=== PATIENT | female | born 1965 | race Caucasian/White ===

== ENCOUNTER 2018-11-05 21:25 | Observation (INO) ==
[2018-11-05] MEDS ORDERED: ASPIRIN PO ONE (21:33)
[2018-11-05 22:17] LABS: BASO# 0.04 X1000 (0.0-0.2); BASO% 0.4 % (0.0-0.8); EOS# 0.17 X1000 (0.0-0.7); EOS% 1.6 % (0.0-10.0); HEMATOCRIT 38.1 % (37.0-47.0); HEMOGLOBIN 13.1 g/dL (12.0-16.0); IMM GRAN# 0.02 X1000 (0.0-0.04); IMM GRAN% 0.2 % (0.0-0.5); LYMPH# 3.09 X1000 (1.2-3.4); LYMPH% 28.6 % (20.5-51.1); MCH 29.4 PG (27-31); MCHC 34.4 g/dL (33-37); MCV 85.4 FL (81-99); MONO# 0.65 X1000 (0.11-0.59); MPV 10.1 FL (7.4-10.4); NEUT# 6.83 X1000 (1.4-6.5); NEUT% 63.2 % (42.2-75.2); PLT 284 X1000 (130-400); RBC 4.46 XMIL (4.2-5.4); RDW 12.8 % (11.5-14.5)
[2018-11-05 22:33] LABS: INR 0.81; PROTIME 11.6 Seconds (11.0-16.0); PTT 26.4 Seconds (22.3-41.8)
[2018-11-05 22:36] LABS: D-DIMER 0.54 ug/mLFEU (0.0-0.52)
[2018-11-05 22:43] LABS: AGAP 14; ALBUMIN 3.9 g/dL (3.5-5.0); ALKALINE PHOSPHATASE 107 U/L (32-104); BUN 13 mg/dL (8-22); CALCIUM 9.3 mg/dL (8.8-10.2); CHLORIDE 97 mmol/L (98-107); CK PROFILE 91 U/L (24-173); COSMO 274; CREATININE 0.7 mg/dL (0.5-0.9); ESTIMATED GFR > 60; GLUCOSE 103 mg/dL (70-104); GOT 22 U/L (10-30); GPT 27 U/L (10-36); POTASSIUM 3.7 mmol/L (3.5-5.1); SODIUM 137 mmol/L (136-145); TCO2 25 mmol/L (25-35); TOTAL PROTEIN 6.7 g/dL (6.3-8.3)
--- NOTE | 2018-11-05 23:42 | EKG Report ---
Test Performed on : 11/05/2018 9:54:06 PM Test Reason : palpitations Blood Pressure : / mmHG Vent. Rate : 092 BPM Atrial Rate : 092 BPM P-R Int : 148 ms QRS Dur : 084 ms QT Int : 366 ms P-R-T Axes : 040 027 061 degrees QTc Int : 452 ms Sinus rhythm. with premature atrial complexes. Low voltage QRS Borderline ECG When compared with ECG of 21-APR-2017 03:37, premature atrial complexes. are now present Unconfirmed Result
--- NOTE | 2018-11-06 03:36 | PROVIDER DOCUMENTATION ---
This chart was entered by Alexandra Spangler Scribe, acting as scribe for Daniela Medina MD. HPI-Cardiac General - General Chief Complaint: Palpitations Stated Complaint: PALPITATIONS Time Seen by Provider: 11/05/18 21:45 Source: patient Allergies/Adverse Reactions: Patient Allergies Allergy/AdvReac Type Severity Reaction Status Date / Time nut - unspecified [nut] Allergy Severe SHORTNESS Verified 11/05/18 21:33 OF BREATH erythromycin base Allergy SHORTNESS Verified 11/05/18 21:33 OF BREATH Penicillins Allergy NAUSEA/VOMI Verified 11/05/18 21:33 TING propoxyphene HCl * Allergy SHORTNESS Verified 11/05/18 21:33 [From Sophy] OF BREATH Home Medications: Home Medication List Medication Instructions Recorded Confirmed Last Taken Type Epinephrine [Epipen 2-Umer] 0.3 mg IM ONCE PRN PRN #0 08/28/14 04/21/17 Unknown Rx pen.[email or web address] Fluticasone/Salmet 250/50 INH 1 puff INH BID 04/21/17 04/21/17 Unknown History [Advair 250/50 Diskus] Insulin Aspart [Novolog] 20 units SQ TID 04/21/17 04/21/17 Unknown History Insulin Degludec [Tresiba 80 units SQ DAILY 04/21/17 04/21/17 Unknown History Flextouch U-200] Losartan Potassium 1 tab PO DAILY 04/21/17 04/21/17 Unknown History Metformin HCl [Metformin HCl ER] 3 tab PO DAILY 04/21/17 04/21/17 Unknown History Montelukast Sodium 1 tab PO DAILY 04/21/17 04/21/17 Unknown History Ondansetron Odt [Zofran 4 mg Odt] 4 mg PO Q6H PRN PRN #10 tab 04/21/17 Unknown Rx Pantoprazole Sodium 1 tab PO DAILY 04/21/17 04/21/17 Unknown History - History of Present Illness-Cardiac Nature of Presenting Problem: pt is a 53 yr old female presenting with complaint of palpitations, chest pressure, shortness of breath onset this evening, pt does reports similar last night but resolved quickly without intervention, pt denies any cardiac hx. Location: reports: central Quality of Pain: reports: pressure Severity in ED: moderate Onset/Duration: this evening Timing: still present Context/Activities at Onset: reports: light activity Modifying Factors: improves with: nothing Palpitation Quality: missing beats History of arrythmia: reports: none Recent use of:: reports: no stimulants Nitro Today/Relief: reports: no nitro taken today Aspirin Treatment Today: reports: 325 mg x 1, provided by ED Prior Chest Pain/Cardiac Workup: reports: no prior chest pain Associated Symptoms: reports: nausea, shortness of breath. denies: diaphoresis, fever/chills Similar Symptoms Previously?: No Recently Seen Here or By Another Healthcare Provider: No Review of Systems - Adult - REVIEW OF SYSTEMS - ADULT Constitutional: denies: fever, fatique Eyes: denies: blurred vision, double vision Ears, Nose, Mouth & Throat: reports: no symptoms reported Cardiovascular: reports: chest pain, irregular heart rate, palpitations. denies: syncope Respiratory: reports: shortness of breath Gastrointestinal: reports: nausea. denies: vomiting Genitourinary: reports: no symptoms reported Musculoskeletal: reports: no symptoms reported Integumentary: reports: no symptoms reported Neurological: denies: dizziness/vertigo, headache/migraines Psychiatric: reports: no symptoms reported Endocrine: reports: no symptoms reported Hematologic/Lymphatic: reports: no symptoms reported Allergic/Immunologic: reports: no symptoms reported All Other Systems: Reviewed and Negative Past History - Adult - PAST MEDICAL HISTORY-ADULT Review of Records: reports: Old Records Reviewed, Nursing Assessment Review, Medications Reviewed, Social history reviewed & non-contributory. Major Childhood Illnesses: reports: denies history Cardiovascular: reports: denies history Respiratory: reports: asthma Gastrointestinal: reports: denies history Obstetrical/Gynecological: reports: denies history Genitourinary: reports: denies history Musculoskeletal: reports: denies history Neurological: reports: denies history Psychiatric: reports: denies history Endocrine/Immune: reports: Diabetes Other Conditions: reports: denies history - PRIOR SURGERIES/PROCEDURES Surgical/Procedure History: reports: none - IMMUNIZATION STATUS Childhood Immunizations: See Nurse Assessment Flu Vaccine: See Nurse Assessment - FAMILY HISTORY Family History: reviewed, not pertinent - SOCIAL HISTORY Smoking: non-smoker Substance Use: none/never Living Situation: family Physical Exam-General - PHYSICAL EXAM-ADULT Initial Vital Signs Reviewed: Yes - CONSTITUTIONAL General Appearance: alert, no apparent distress, obese, anxious - EYES Eyes: PERRL/EOMI - HEAD, EARS, NOSE, MOUTH & THROAT HENMT: normocephalic/atraumatic, moist mucous membranes, normal ENT inspection - NECK Neck: non-tender, full range of motion, supple, normal inspection - RESPIRATORY Respiratory: chest non-tender, lungs clear, normal breath sounds - CARDIOVASCULAR Cardiovascular: normal peripheral pulses, regular rate, rhythm, no edema - GASTROINTESTINAL (ABDOMEN) Abdominal Exam: normal bowel sounds, non tender, soft - LYMPHATIC Lymphatic: no adenopathy - MUSCULOSKELETAL Back Exam: normal inspection, no CVA tenderness, no vertebral tenderness Extremity: normal range of motion, non-tender, normal gait, normal inspection - SKIN Integumentary: normal color, normal turgor, warm/dry - NEUROLOGIC Neurologic: grossly normal, no motor/sensory deficits - PSYCHIATRIC Psych/Mental Status: anxious Progress - PLAN OF CARE/RESULTS Progress/Plan/Lab Results: Vital Signs - 8 hr 11/05/18 21:31 Temperature 99.0 F Pulse Rate 108 H Respiratory Rate 22 Blood Pressure 143/68 O2 Sat by Pulse Oximetry 99 Laboratory Results - last 24 hr 11/05/18 11/05/18 11/05/18 22:05 22:05 22:05 WBC 10.80 RBC 4.46 Hgb 13.1 Hct 38.1 MCV 85.4 MCH 29.4 MCHC 34.4 RDW Std Deviation 12.8 Plt Count 284 MPV 10.1 Immature Gran % (Auto) 0.2 Neut % (Auto) 63.2 Lymph % (Auto) 28.6 Wilcox % (Auto) 6.0 Eos % (Auto) 1.6 Baso % (Auto) 0.4 Immature Gran # (Auto) 0.02 Neut # (Auto) 6.83 H Lymph # (Auto) 3.09 Wilcox # (Auto) 0.65 H Eos # (Auto) 0.17 Baso # (Auto) 0.04 PT INR PTT (Actin FS) D-Dimer, Quantitative Sodium 137 Potassium 3.7 Chloride 97 L Carbon Dioxide 25 Anion Gap 14 BUN 13 Creatinine 0.7 Estimated GFR/1.73 m2 > 60 BUN/Creatinine Ratio 19 Glucose 103 Calculated Osmolality 274 Calcium 9.3 Total Bilirubin 0.30 AST 22 ALT 27 Alkaline Phosphatase 107 H Creatine Kinase 91 Troponin T [id number] Pept 19 Total Protein 6.7 Albumin 3.9 Globulin 3.0 Albumin/Globulin Ratio 1.0 11/05/18 11/05/18 22:05 22:05 WBC RBC Hgb Hct MCV MCH MCHC RDW Std Deviation Plt Count MPV Immature Gran % (Auto) Neut % (Auto) Lymph % (Auto) Wilcox % (Auto) Eos % (Auto) Baso % (Auto) Immature Gran # (Auto) Neut # (Auto) Lymph # (Auto) Wilcox # (Auto) Eos # (Auto) Baso # (Auto) PT 11.6 INR 0.81 PTT (Actin FS) 26.4 D-Dimer, Quantitative 0.54 H Sodium Potassium Chloride Carbon Dioxide Anion Gap BUN Creatinine Estimated GFR/1.73 m2 BUN/Creatinine Ratio Glucose Calculated Osmolality Calcium Total Bilirubin AST ALT Alkaline Phosphatase Creatine Kinase Troponin T < 0.010 [id number]-[id number] Pept Total Protein Albumin Globulin Albumin/Globulin Ratio Orders Category Date Time Status Cardiac Monitoring DIRECTED Care 11/05/18 21:34 Active Saline Loc NOW Care 11/05/18 21:34 Active CHEST-2 VIEWS [RAD] Stat Exams 11/05/18 21:[address] ANGIOGRM PULMONARY ARTERIES [CT] Stat Exams 11/06/18 00:39 Taken CBC WITH ELECTRONIC DIFF [HEME] Stat Lab 11/05/18 22:05 Completed CK PROFILE [SP CHEM] Stat Lab 11/05/18 22:05 Completed COMPREHENSIVE METABOLIC PANEL [CHEM] Stat Lab 11/05/18 22:05 Completed D-DIMER [COAG] Stat Lab 11/05/18 22:05 Completed PRO B-NATRIURETIC PEPTIDE Stat Lab 11/05/18 22:05 Completed PROTIME WITH INR [COAG] Stat Lab 11/05/18 22:05 Completed PTT [COAG] Stat Lab 11/05/18 22:05 Completed TROPONIN T Stat Lab 11/05/18 22:05 Completed Aspirin Med 11/05/18 21:33 Discontinued 325 mg PO NOW ONE CP/SOB/Palp >45 yrs of Age Stat Oth 11/05/18 21:33 Ordered EKG [EKG] Stat Ther 11/05/18 21:34 Draft Result Diagrams: 11/05/18 22:05 11/05/18 22:05 - REASSESSMENT Reassessment #1 Time Reassessed: 02:34 Status: unchanged (Patient continues to complain of palpitations. Results discussed with patient.) - EKG 1 Time of EKG reading by physician:: 21:59 EKG Read and Signed by:: Daniela Medina EKG Interpretation (*Must complete 3 of following elements*): Abnormal Rate: 92 Rhythm: sinus with PACs [place]: normal QRS: other (low voltage QRS) MT Interval: normal ST Wave: normal - CT/MRI 1 CT Study: Angiogram (no PE, no pneumonia aneurysm or dissection) Departure - Departure Date of Disposition Decision: 11/06/18 Time of Disposition Decision: 02:31 DIAGNOSIS: Palpitation Disposition: ADMITTED INPATIENT 09 Certified Medical Emergency: Emergent Condition: Stable Referrals and Follow-Ups: Nolan Reyna MD [Primary Care Provider] - - Critical Care Note This patient required my direct & personal management of CC.: No Attestation - Physician/ NIGEL Attestation Patient care was provided by Advanced Practice Provider:: No The physician spent face to face time with patient:: Yes Advanced Practice Provider documentation review:: Supervising physician onsite and consulted in the evaluation and care of this patient. The physician did have a face to face encounter with the patient. This chart was documented by the indicated scribe, (Alexandra Spangler Scribe) and accurately reflects the services I performed and decisions made by me, Daniela Medina MD, as attested by the provider's signature.
[2018-11-06] MEDS ORDERED: VENTOLIN HFA INH PRN (07:00)
--- NOTE | 2018-11-06 07:21 | Diag Imaging Result Doc PS360 ---
EXAM: CHEST-2 VIEWS 11/05/2018 HISTORY: palpitation TECHNIQUE: PA and lateral chest COMMENT: There is no evidence of acute cardiac or pulmonary disease. Compared to 03/18/2018 there has been no significant change. IMPRESSION: Stable chest. Electronically signed by Leonardo Mills 11/06/2018 7:19 AM
--- NOTE | 2018-11-06 07:30 | EKG Report ---
Test Performed on : 11/06/2018 07:24:33 AM Test Reason : CP Blood Pressure : / mmHG Vent. Rate : 087 BPM Atrial Rate : 087 BPM P-R Int : 146 ms QRS Dur : 084 ms QT Int : 374 ms P-R-T Axes : 011 044 059 degrees QTc Int : 450 ms Normal sinus rhythm. Normal ECG When compared with ECG of 05-NOV-2018 21:54, (Unconfirmed) premature atrial complexes. are no longer present Confirmed by Kary ROLAND, Johnathon Atkins ([id number]) on 11/07/2018 11:59:36 AM
[2018-11-06 07:46] LABS: BASO# 0.02 X1000 (0.0-0.2); BASO% 0.3 % (0.0-0.8); EOS# 0.18 X1000 (0.0-0.7); EOS% 2.4 % (0.0-10.0); HEMATOCRIT 38.8 % (37.0-47.0); LYMPH% 24.9 % (20.5-51.1); MCH 28.8 PG (27-31); MCHC 33.5 g/dL (33-37); MCV 85.8 FL (81-99); MONO# 0.47 X1000 (0.11-0.59); MONO% 6.2 % (1.7-9.3); MPV 10.2 FL (7.4-10.4); NEUT# 5.07 X1000 (1.4-6.5); NEUT% 66.2 % (42.2-75.2); PLT 272 X1000 (130-400); RBC 4.52 XMIL (4.2-5.4); RDW 12.9 % (11.5-14.5); WBC 7.64 X1000 (4.8-10.8)
[2018-11-06] MEDS: ADVAIR 250/50 DISKUS INH SCH ×2 (08:07→21:00)
[2018-11-06] MEDS: DUONEB (A & A) INH SCH ×3 (08:08→20:59)
[2018-11-06 08:19] LABS: AGAP 14; ALB/GLOB RATIO 1.1; ALBUMIN 3.6 g/dL (3.5-5.0); ALKALINE PHOSPHATASE 95 U/L (32-104); BUN 14 mg/dL (8-22); CHLORIDE 103 mmol/L (98-107); COSMO 286; CREATININE 0.8 mg/dL (0.5-0.9); ESTIMATED GFR > 60; GLUCOSE 148 mg/dL (70-104); GOT 22 U/L (10-30); GPT 26 U/L (10-36); MAGNESIUM 1.8 mg/dL (1.5-2.7); POTASSIUM 3.7 mmol/L (3.5-5.1); SODIUM 142 mmol/L (136-145); TCO2 25 mmol/L (25-35); TOTAL BILIRUBIN 0.46 mg/dL (0.20-1.00)
[2018-11-06] MEDS ORDERED: TRESIBA FLEXTOUCH U-200 SUBQ SCH (09:00)
[2018-11-06] MEDS ORDERED: COMBIVENT RESPIMAT INHALER INH SCH (09:00)
[2018-11-06 09:15] LABS: HEMOGLOBIN A1C 7.7 % (4.8-6.0)
[2018-11-06] MEDS ORDERED: LEXISCAN ONE (11:25)
[2018-11-06] MEDS: HUMALOG SUBQ SCH ×4 (11:58→20:23)
--- NOTE | 2018-11-06 12:07 | CARDIOLOGY CONSULTATION ---
DATE: 11/06/2018 HISTORY OF PRESENT ILLNESS: Ms. Durham came in with complaints of having had palpitations last night. She was at home. She had palpitations, which were significant. This was subsequently followed by retrosternal chest discomfort which she describes as a pressure-like sensation radiating to her back. This lasted for at least 2 to 3 hours before she came to the emergency room. She underwent a CT scan of her chest to rule out pulmonary embolism, which was negative. Prior to these episodes she has not had any cardiac symptoms of palpitations or chest pain. There was no dizziness or syncope associated with this. REVIEW OF SYSTEMS: A 14-point review of system was done.GI System: There is no history of nausea, vomiting, or diarrhea. There is no history of hematemesis or melena. Central nervous system: No focal weakness to suggest a CVA or TIA. System: There is no dysuria or hematuria. PAST MEDICAL HISTORY: Diabetes. Asthma. Obesity. Gastroesophageal reflux disease. Hypertension. HOME MEDICATIONS: Montelukast 10. Protonix 40. Metformin 1500 mg daily. Duloxetine 60. Insulin, NovoLog. Tresiba. Januvia 100 mg a day. Iron sulfate. Pravachol 40. Losartan 50. Enteric-coated aspirin. ALLERGIES: Penicillin. Erythromycin. SOCIAL HISTORY: She does not smoke. There is no history of alcohol abuse. FAMILY HISTORY: There is no premature family history of coronary artery disease. PHYSICAL EXAMINATION: Vital Signs: Blood pressure was 131/73. Cardiovascular system: Normal jugular venous pressure. There is no thyromegaly. No carotid bruit. First and second heart sounds were heard. There is no S3, S4, or gallop. Respiratory system: Normal air entry. There is no crepitation or rhonchi. Abdomen: Soft, obese, nontender. There was no guarding or rigidity. Bowel sounds were heard. Central nervous system: Alert. Moving all 4 extremities. Extremities: Examination of the extremities revealed no pedal edema. HEENT: Atraumatic, normocephalic. Pupils were equal and reactive to light. DIAGNOSTIC DATA: Chest x-ray was unremarkable. CT scan of the chest did not reveal any evidence of pulmonary embolism. Laboratory examination revealed sodium 142, potassium 3.7, BUN 14, creatinine 0.8. TSH 4.28. Two sets of cardiac enzymes were negative. Hemoglobin A1c 7.7. Hematology was unremarkable. Electrocardiogram revealed normal sinus rhythm, early repolarization pattern. There was no ST-T change to suggest ischemia. ASSESSMENT: Ms. Radha Durham is a 53-year-old, lady, with history of diabetes, asthma, gastroesophageal reflux disease and hypertension, who came in with complaints of having palpitations. In addition, subsequently she had retrosternal chest discomfort, which lasted for a couple of hours with radiation to the back. PLAN: 1. The patient has symptoms concerning for coronary artery disease. She has been ruled out for myocardial infarction by cardiac enzymes. We will set her up to undergo a Cardiolite stress test to assess for and rule out ischemia. 2. We will get an echocardiogram to assess cardiac and valvular function. 3. For hypertension and diabetes. Continue with the current medications. She also has asthma. I have not made any changes to her medications. Thank for the consult. We will follow through the hospital course. cc: MD Nolan Clemons MD
--- NOTE | 2018-11-06 12:43 | Diag Imaging Result Doc PS360 ---
CT ANGIOGRM PULMONARY ARTERIES - 11/06/2018 INDICATION: palpitations, elevated dimer TECHNIQUE: Axial CT images were obtained after administering intravenous contrast. Coronal MIP images were generated. COMPARISON: None FINDINGS: There is no pulmonary embolism. Heart and great vessels are normal. No adenopathy. Upper abdominal images are normal. The lungs are clear. There is a small centrally calcified nodule in the right midlung compatible with a granuloma. There are moderate degenerative changes of the spine. No acute or suspicious bony lesion. IMPRESSION: Negative exam. This exam was performed using automated exposure control, adjustment of mA or kV according to patient size, and/or use of iterative reconstruction technique Electronically signed by Gonzalo Vidal 11/06/2018 12:40 PM
[2018-11-06] MEDS: PROTONIX PO SCH (15:24)
[2018-11-06] MEDS: LOVENOX SUBQ SCH (15:24)
[2018-11-06] MEDS: SINGULAIR PO SCH (15:26)
[2018-11-06] MEDS: JANUVIA PO SCH (15:26)
[2018-11-06] MEDS: CYMBALTA PO SCH (15:26)
[2018-11-06] MEDS: COZAAR PO SCH (15:26)
--- NOTE | 2018-11-06 16:32 | Diag Imaging Result Document ---
PROCEDURE NAME: MYOCARDIAL PERF SCAN, STR/REST - 11/06/2018 LEXISCAN SESTAMIBI INTERPRETATION: SUMMARY: The patient was administered 15.5 mCi of technetium-99m sestamibi, after which resting cardiac images were obtained. The patient was subsequently administered Lexiscan 0.4 mg intravenously, after which the heart rate went from 90 beats per minute to 114 beats per minute and the blood pressure went from 123/68 to 118/56. With Lexiscan, the patient denied chest discomfort. Following the administration of Lexiscan, the patient was administered 46.2 mCi of technetium 99-m sestamibi after which gated stress cardiac images were obtained. Baseline ECG demonstrated sinus rhythm and nondiagnostic inferior Q-waves. With Lexiscan, there were no diagnostic ST-segment changes. SPECT images were reconstructed in the short, horizontal long, and vertical long axes. Review of these images demonstrated homogeneous uptake of radiopharmaceutical on both stress and resting images. Gated images demonstrate a calculated left ventricular ejection fraction of 74% with symmetrical wall motion/thickening. CONCLUSIONS: 1. Adequate response to Lexiscan. 2. Clinically negative for chest pain. 3. Electrocardiographically negative for Lexiscan-induced myocardial ischemia. 4. Normal Lexiscan sestamibi images. cc: MD Nolan Martinez MD
--- NOTE | 2018-11-06 19:49 | HISTORY AND PHYSICAL ---
CHIEF COMPLAINT: Palpitations. HISTORY OF PRESENT ILLNESS: A 53-year-old, white female patient who was in her usual state of health. The patient started having palpitation yesterday. The patient described it as irregular heart rhythm at times rapid. It was initially slow, but then it became rapid associated with mild shortness of breath at times. The patient had episode of prolonged rapid heartbeat followed by chest pain, which she described as a pressure-like, left-sided pain from the chest which was going to her back. The patient tried to relax. Palpitation was not going away. No associated sweating. The patient went to the emergency room. Evaluated by ER physician. Workup in the ER, including the EKG, cardiac isoenzymes were negative. D-dimer minimally elevated. The patient underwent CTA of the pulmonary artery. It was benign. The patient's risk factors for coronary artery disease includes hypertension, hyperlipidemia, menopause, diabetes mellitus. The patient was still having problems and the ER physician decided to admit the patient for observation. The patient was transferred from [facility] to [facility]. I evaluated the patient and decided to do echocardiogram and further workup. The patient denied excessive use of caffeine. No heat or cold intolerance. No major weight loss. Denied any fever or chills. No unusual cough, expectoration. The patient does have wheezing at times. No dysuria or hematuria. No diarrhea, blood, or mucus in the stool. No further history available at this time. ALLERGIES: Azithromycin, penicillin, propoxyphene. MEDICATIONS: Includes: Aspirin, ferrous sulfate, Pravachol, insulin, metformin, albuterol inhaler, Cymbalta, Advair, Tresiba, Combivent, Cozaar, Singulair, Protonix, Januvia. PAST MEDICAL HISTORY: Bronchial asthma, diabetes mellitus on insulin, hypertension, rhinitis, gastritis, situational depression. PERSONAL HISTORY: Single, nonsmoker, denied alcohol or substance abuse. FAMILY HISTORY: Noncontributory. REVIEW OF SYSTEMS: As per HPI, the patient does have iron-deficiency anemia, superficial varicose vein. PHYSICAL EXAMINATION: GENERAL: Middle-aged white female patient, morbidly obese in mild distress. The rest from the chart. VITAL SIGNS: On admission, blood pressure 143/68, pulse 108, respiration 22, temperature 99 degrees. SKIN: Normal turgor. No rash or petechiae. HEAD: Atraumatic, normocephalic. ENT: [place] conjunctivae. Anicteric sclerae. Fundus cannot be penetrated. Good oral hygiene. No tonsillopharyngeal congestion or exudate. Ears and nose benign. NECK: Supple. No JVD, thyromegaly or lymphadenopathy. CHEST: Bilateral good air entry present. No rales. Occasional wheezing. CARDIOVASCULAR: S1 and S2 heard. No gallop or thrill. ABDOMEN: Soft. No distention. Bowel sounds present. EXTREMITIES: No cyanosis, clubbing. The patient does have superficial varicosity. No acute DVT or acute vascular compromise. [employer]: Alert, awake, answering questions fairly well. Able to move all 4 limbs. MUSCULOSKELETAL: No acute synovitis. LABORATORY DATA: Revealed: Admission leukocyte count was 10. Hemoglobin 13.1, hematocrit 38.1, platelet count 284,000. PT/INR 0.81. PTT 26.8. D-dimer was 0.54. Electrolytes were benign. Her TSH was 4.24. Cardiac isoenzymes were negative. Pulmonary arteriogram was negative. Chest x- ray: Stable chest. CONSIDERATION: 1. Palpitation. Her EKG was unremarkable. 2. Chest pain rule out myocardial infarction. 3. Morbid obesity. 4. Insulin-dependent diabetes mellitus. 5. Hyperlipidemia. 6. Hypertension. 7. History of bronchial asthma. 8. Gastritis. 9. Reflux disease. PLAN: Admit the patient. IV antibiotics. Close observation. Bronchodilator treatment. Overall plan discussed with the patient. Admit the patient for observation, telemetry monitoring, p.r.n. oxygen, echocardiogram. I will consider Lexiscan. Overall plan discussed at length with the patient. I will get [*] , repeat blood work and cardiac isoenzymes. Encouraged weight reduction. Overall plan discussed with the patient and she is in agreement. cc: Nolan Reyna MD
[2018-11-06] MEDS ORDERED: ATIVAN PO SCH (21:00)
--- NOTE | 2018-11-06 23:49 | ECHO REPORT ---
ORDER DATE: 11/06/2018 MEASUREMENTS: Septal thickness 1.1, left ventricular internal diameter in diastole 4.6, posterior wall thickness 0.8, aortic root 3.1, left atrium 3.6. SUMMARY: 1. Fair quality study. 2. The aortic valve is trileaflet and opens normally on 2-dimensional images. Peak gradient across the aortic valve is approximately 18 mmHg with a mean gradient of 12 mmHg. Values are increased in the setting of dynamic left ventricular function. There is no significant aortic stenosis. Mitral, tricuspid, and pulmonic valves are without evidence of structural abnormality with trace tricuspid regurgitation. The estimated systolic PA pressure by Doppler is 30 mmHg. The aortic root is normal size. 3. Normal left ventricular dimensions demonstrated. Estimated left ventricular ejection fraction appears to be at least 70%, with the left ventricle appearing somewhat hyperdynamic. The left atrium, right atrium, and right ventricle are normal size with normal right ventricular systolic function. 4. No pericardial effusion. 5. Appearance of inferior vena cava suggests normal central venous pressure. CONCLUSIONS: 1. No significant valvular abnormality evident. 2. Left ventricle somewhat hyperdynamic with estimated left ventricular ejection fraction at least 70%. cc: MD Nolan Martinez MD [facility]ITALLibrado
[2018-11-07] MEDS: DUONEB (A & A) INH SCH ×2 (03:31→08:18)
[2018-11-07 04:51] LABS: ALLEN TEST YES; BE 2.8 mmoll (-3.0-3.0); BLOOD TYPE ARTERIAL; HCO3-(ACT) 27.1 mmoll (20.0-26.0); METHB 1.3 % (0.0-1.5); O2(CT) 17.3 mL/dL (15.0-23.0); O2HB 96.2 % (95.0-99.0); PCO2(98.6) 34 mmHg (35-45); PO2(98.6) 105 mmHg (60-100); SAMPLE BLOOD; SAO2 99.2 % (95.0-100.0); THB 12.7 g/dL (11.5-17.4); pH(98.6) 7.49 (7.35-7.45)
[2018-11-07 04:52] LABS: MODALITY ROOM AIR
[2018-11-07] MEDS: HUMALOG SUBQ SCH ×2 (06:27→10:43)
[2018-11-07] MEDS: PROTONIX PO SCH (06:29)
[2018-11-07] MEDS ORDERED: INSULIN PEN NEEDLES ONE (07:21)
--- NOTE | 2018-11-07 07:30 | PROGRESS NOTE ---
DATE: 11/07/2018 SUBJECTIVELY: Ms. Durham is doing better. The patient was able to sleep well last night. The patient denied any chest pain or palpitations. No nausea or vomiting. We did a stress test which was negative. Echocardiogram was normal. LABORATORY DATA: Noted which was benign. Her TSH was minimally elevated. Clinically patient is doing better. Blood sugar was at times high but she did not received her regular dose of insulin. Hemoglobin A1c was 7.7. OBJECTIVE: Vital signs: Noted. Neck: Supple. No JVD. Lungs: Bibasilar crepitations. Heart: S1 and S2 heard. Abdomen: Soft, globular. Bowel sounds present. Central nervous system: Alert, awake able to move all 4 limbs. ASSESSMENT AND PLAN: Clinically patient is doing better. We did work her up for her palpitations, etiology not clear. If she continues to have same problem, we may have to consider Holter monitor versus event monitor as an outpatient. Continue home medicine, follow up with me in the office in 1 week. I will ambulate the patient in the room and hallway. In case of more distress, call us back or go to the emergency room. Overall discharge condition satisfactory. Encouraged patient to lose weight. cc: Nolan Reyna MD
[2018-11-07 07:39] VITALS: BP 137/75
[2018-11-07] MEDS: ADVAIR 250/50 DISKUS INH SCH (08:17)
[2018-11-07] MEDS: JANUVIA PO SCH (08:21)
[2018-11-07] MEDS: CYMBALTA PO SCH (08:21)
[2018-11-07] MEDS: COZAAR PO SCH (08:22)
[2018-11-07] MEDS: SINGULAIR PO SCH (08:22)
[2018-11-07] MEDS: LOVENOX SUBQ SCH (08:22)
[2018-11-07] MEDS ORDERED: TRESIBA FLEXTOUCH U-200 SUBQ SCH (09:00)
== END 2018-11-07 12:57 | disposition home or self-care (01) ==
LOC: P.ED 21:25 → 3N 11-06 05:53 → INTOOBSV 11-06 05:53 → SUATTDRO 11-06 05:53 → 3N 11-06 06:40
PROVIDERS: ADMIT Internal Medicine; ATTEND Internal Medicine
CPT/HCPCS: 71020; 71046; 71275; 78452; 80053; 82550; 82805; 82948; 83036; 83735; 83880; 84443; 84484; 85025; 85379; 85610; 85730; 93005; 93010; 93017; 93306; 94640; 94761; 99285; A9270; A9500; J1650; J1815; J2785; Q9967; XXXXX